=== PATIENT | male | born 1965 | race African-American/Black ===

== ENCOUNTER 2017-10-21 01:35 | Inpatient (IN) | payer MEDICAID ==
[~2017-10-21] VITALS: Ht 175.3 cm; Wt 44.2 kg
[2017-10-21] VITALS (9 sets, daily range): BP systolic 125–155; BP diastolic 77–99
[2017-10-21] MEDS ORDERED: IPRATROPIUM BROMIDE (0.02%) 0.5MG/2.5ML NEB HHN STA (01:42)
[2017-10-21] MEDS ORDERED: ALBUTEROL (0.083%) 2.5MG/3ML NEB HHN STA (01:42)
[2017-10-21 02:22] LABS: BASOPHILS % 0.2 % (0.0-2.0); EOSINOPHILS % 1.3 % (0.0-5.0); HEMATOCRIT. 28.6 % (42.0-52.0); HEMOGLOBIN. 9.4 g/dL (14.0-18.0); LYMPHOCYTES % 12.6 % (20.0-50.0); MEAN CORPUSCULAR HEMOGLOBIN 28.3 pg (28.0-32.0); MEAN PLATELET VOLUME 7.3 fl (7.4-10.4); MONOCYTES % 9.5 % (2.0-8.0); NEUTROPHILS % 76.4 % (40.0-76.0); PLATELET 190 x1000/uL (130-400); RED BLOOD CELL COUNT 3.32 mill/uL (4.7-6.1); RED CELL DISTRIBUTION WIDTH 14.1 % (11.6-14.6)
[2017-10-21 02:30] LABS: INR 1.1; PROTHROMBIN TIME 11.5 sec (9.4-11.6)
[2017-10-21 02:41] LABS: CHLORIDE 98 mEq/L (98-107); TROPONIN I < 0.02 ng/mL (0.00-0.04)
[2017-10-21] MEDS ORDERED: SODIUM CHLORIDE 0.9% 1,000 ML IV SCH (03:46)
[2017-10-21] MEDS ORDERED: IOHEXOL-350 100 ML BOTTLE ONE (05:02)
[2017-10-21] MEDS ORDERED: CLON0.2T PO (05:11)
[2017-10-21] MEDS ORDERED: GABA-290 (05:17)
[2017-10-21] MEDS ORDERED: LEVO500T89 (05:17)
[2017-10-21] MEDS ORDERED: DOCU-150 (05:17)
[2017-10-21] MEDS ORDERED: METO-411 (05:17)
[2017-10-21] MEDS ORDERED: ATOR20TA65 (05:17)
[2017-10-21] MEDS ORDERED: TAMS0.4C31 (05:17)
[2017-10-21] MEDS ORDERED: IPRATROPIUM/ALBUTEROL 0.5-3(2.5)MG/3ML NEB HHN PRN (07:15)
[2017-10-21] MEDS: IPRATROPIUM/ALBUTEROL 0.5-3(2.5)MG/3ML NEB HHN SCH ×4 (09:35→20:18)
[2017-10-21] MEDS ORDERED: ALBU18HF2 IH (09:38)
[2017-10-21] MEDS ORDERED: IBUP-2271 PO (09:38)
[2017-10-21] MEDS ORDERED: AMLO10TA80 PO (09:38)
[2017-10-21] MEDS ORDERED: METR500T4 PO (09:38)
[2017-10-21] MEDS ORDERED: ATOR20TA65 PO (09:38)
[2017-10-21] MEDS ORDERED: MORP30TA66 PO (09:38)
[2017-10-21 11:10] LABS: BG BASE EXCESS 3.7 mmol/L (-2.0-2.0); BG CARBOXYHEMOGLOBIN 0.3 % (0.5-1.5); BG DEOXYHEMOGLOBIN 7.8 % (0.0-5.0); BG FRACTION INSPIRED OXYGEN 21; BG HCO3 ACT 26.9 mmol/L (22.0-26.0); BG METHEMOGLOBIN 0.6 % (0.0-1.5); BG OXYGEN SATURATION 92.1 % (92.0-98.5); BG OXYHEMOGLOBIN 91.3 % (94.0-97.0); BG PH 7.503 (7.350-7.450); BG SAMPLE SITE RIGHT BRACHIAL; BG TOTAL HEMOGLOBIN 9.4 g/dL (12.0-18.0); BG VENT MODE ROOM AIR
[2017-10-21] MEDS ORDERED: SODIUM BICARBONATE 4% (2.4MEQ) 5ML VIAL IV ONE (14:27)
[2017-10-21] MEDS ORDERED: ALBUTEROL 6.7GM HFA INHALER INH SCH (15:45)
[2017-10-21] MEDS: CLONIDINE 0.2MG TABLET PO SCH (15:57)
[2017-10-21] MEDS: MORPHINE SULFATE 4 MG/ML CPJ (NOT FOR IM USE) IV PRN (15:58)
[2017-10-21] MEDS: ENOXAPARIN 40MG/0.4ML SYR SUBCUT SCH (17:25)
[2017-10-21] MEDS: GABAPENTIN 300MG CAPSULE PO SCH (17:25)
[2017-10-21] MEDS: LEVOFLOXACIN 500MG TABLET PO SCH (17:25)
[2017-10-21 19:49] LABS: CLARITY URINE TURBID (CLEAR); COLOR URINE YELLOW (YELLOW); KETONES URINE NEGATIVE (NEGATIVE); LEUKOCYTE ESTERASE URINE TRACE (NEGATIVE); NITRITE URINE NEGATIVE (NEGATIVE); OCCULT BLOOD URINE TRACE (NEGATIVE); PROTEIN URINE 2+ (NEGATIVE); SPECIFIC GRAVITY URINE 1.046 (1.005-1.030); UROBILINOGEN URINE 0.2 E.U./dL (0.2-1.0)
[2017-10-21 20:05] LABS: *AMPHETAMINES SCREEN URINE NEGATIVE (NEGATIVE); *BARBITURATES SCREEN URINE NEGATIVE (NEGATIVE); *BENZODIAZEPINES SCREEN URINE NEGATIVE (NEGATIVE); *COCAINE SCREEN URINE NEGATIVE (NEGATIVE); CANNABINOID URINE SCREEN NEGATIVE (NEGATIVE); METHADONE URINE SCREEN NEGATIVE (NEGATIVE); OPIATES URINE SCREEN PRESUMTIVE POSITIVE (NEGATIVE); PHENCYCLIDINE URINE SCREEN NEGATIVE (NEGATIVE)
[2017-10-21] MEDS: METOPROLOL TARTRATE 100MG TABLET PO SCH (20:48)
[2017-10-21] MEDS: ATORVASTATIN CALCIUM 20MG TABLET PO SCH (20:48)
[2017-10-21] MEDS: METRONIDAZOLE 500MG TABLET PO SCH (21:10)
[2017-10-22] VITALS (12 sets, daily range): BP systolic 110–155; BP diastolic 65–104
[2017-10-22] MEDS: IPRATROPIUM/ALBUTEROL 0.5-3(2.5)MG/3ML NEB HHN SCH ×6 (00:33→20:00)
[2017-10-22] MEDS: IBUPROFEN 200MG TABLET PO PRN ×2 (03:16→23:32)
[2017-10-22] MEDS: METRONIDAZOLE 500MG TABLET PO SCH ×3 (05:44→21:06)
[2017-10-22 07:08] LABS: BASOPHILS % 0.3 % (0.0-2.0); EOSINOPHILS % 1.2 % (0.0-5.0); HEMATOCRIT. 24.9 % (42.0-52.0); HEMOGLOBIN. 8.4 g/dL (14.0-18.0); LYMPHOCYTES % 8.8 % (20.0-50.0); MEAN CORPUSCULAR HEMOGLOBIN 28.7 pg (28.0-32.0); MEAN CORPUSCULAR VOLUME 85.1 fL (80.0-94.0); MEAN PLATELET VOLUME 7.6 fl (7.4-10.4); MONOCYTES % 11.5 % (2.0-8.0); NEUTROPHILS % 78.2 % (40.0-76.0); PLATELET 168 x1000/uL (130-400); RED BLOOD CELL COUNT 2.92 mill/uL (4.7-6.1); RED CELL DISTRIBUTION WIDTH 14.4 % (11.6-14.6)
[2017-10-22 07:44] LABS: CHLORIDE 102 mEq/L (98-107)
[2017-10-22] MEDS: CLONIDINE 0.2MG TABLET PO SCH (08:30)
[2017-10-22] MEDS: TAMSULOSIN HCL 0.4MG SR CAPSULE PO SCH (08:30)
[2017-10-22] MEDS: GABAPENTIN 300MG CAPSULE PO SCH ×2 (08:30→17:18)
[2017-10-22] MEDS: AMLODIPINE 10MG TABLET PO SCH (08:30)
[2017-10-22] MEDS: DOCUSATE SODIUM 100MG CAPSULE PO SCH (08:30)
[2017-10-22] MEDS: METOPROLOL TARTRATE 100MG TABLET PO SCH ×2 (08:31→21:07)
[2017-10-22] MEDS: MORPHINE SULFATE 4 MG/ML CPJ (NOT FOR IM USE) IV PRN ×2 (09:23→21:08)
[2017-10-22] MEDS: LEVOFLOXACIN 500MG TABLET PO SCH (10:56)
[2017-10-22] MEDS: ENOXAPARIN 40MG/0.4ML SYR SUBCUT SCH (17:19)
[2017-10-22] MEDS: ATORVASTATIN CALCIUM 20MG TABLET PO SCH (21:06)
[2017-10-22] MEDS: ONDANSETRON HCL 4MG/2ML VIAL IV PRN (23:54)
[2017-10-23] VITALS (12 sets, daily range): BP systolic 118–158; BP diastolic 70–101
[2017-10-23] MEDS: IPRATROPIUM/ALBUTEROL 0.5-3(2.5)MG/3ML NEB HHN SCH ×6 (04:00→20:00)
[2017-10-23] MEDS: METRONIDAZOLE 500MG TABLET PO SCH ×3 (05:04→21:00)
[2017-10-23] MEDS: ONDANSETRON HCL 4MG/2ML VIAL IV PRN (06:16)
[2017-10-23] MEDS: MORPHINE SULFATE 4 MG/ML CPJ (NOT FOR IM USE) IV PRN ×4 (06:18→21:09)
[2017-10-23 06:40] LABS: BASOPHILS % 0.4 % (0.0-2.0); EOSINOPHILS % 1.1 % (0.0-5.0); HEMATOCRIT. 24.8 % (42.0-52.0); HEMOGLOBIN. 8.4 g/dL (14.0-18.0); LYMPHOCYTES % 8.8 % (20.0-50.0); MEAN CORPUSCULAR HEMOGLOBIN 28.7 pg (28.0-32.0); MEAN CORPUSCULAR VOLUME 85.2 fL (80.0-94.0); MEAN PLATELET VOLUME 7.5 fl (7.4-10.4); MONOCYTES % 11.1 % (2.0-8.0); NEUTROPHILS % 78.6 % (40.0-76.0); PLATELET 192 x1000/uL (130-400); RED BLOOD CELL COUNT 2.92 mill/uL (4.7-6.1); RED CELL DISTRIBUTION WIDTH 14.5 % (11.6-14.6)
[2017-10-23] MEDS: METOPROLOL TARTRATE 100MG TABLET PO SCH ×2 (08:34→20:54)
[2017-10-23] MEDS: CLONIDINE 0.2MG TABLET PO SCH (08:35)
[2017-10-23] MEDS: DOCUSATE SODIUM 100MG CAPSULE PO SCH (08:35)
[2017-10-23] MEDS: GABAPENTIN 300MG CAPSULE PO SCH ×2 (08:35→16:01)
[2017-10-23] MEDS: AMLODIPINE 10MG TABLET PO SCH (08:35)
[2017-10-23] MEDS: TAMSULOSIN HCL 0.4MG SR CAPSULE PO SCH (08:35)
[2017-10-23 09:23] LABS: CHLORIDE 103 mEq/L (98-107)
[2017-10-23] MEDS ORDERED: MORPHINE SULFATE 4 MG/ML CPJ (NOT FOR IM USE) IV PRN (11:00)
[2017-10-23] MEDS: LEVOFLOXACIN 500MG TABLET PO SCH (11:17)
[2017-10-23] MEDS: ENOXAPARIN 40MG/0.4ML SYR SUBCUT SCH (16:02)
[2017-10-23] MEDS: ATORVASTATIN CALCIUM 20MG TABLET PO SCH (20:53)
[2017-10-24] VITALS (12 sets, daily range): BP systolic 119–154; BP diastolic 65–92
[2017-10-24] MEDS: IPRATROPIUM/ALBUTEROL 0.5-3(2.5)MG/3ML NEB HHN SCH ×5 (00:05→20:20)
[2017-10-24] MEDS: MORPHINE SULFATE 4 MG/ML CPJ (NOT FOR IM USE) IV PRN ×5 (03:21→21:08)
[2017-10-24] MEDS: METRONIDAZOLE 500MG TABLET PO SCH ×3 (05:57→21:02)
[2017-10-24 06:33] LABS: BASOPHILS % 0.3 % (0.0-2.0); EOSINOPHILS % 1.3 % (0.0-5.0); HEMATOCRIT. 25.5 % (42.0-52.0); HEMOGLOBIN. 8.5 g/dL (14.0-18.0); LYMPHOCYTES % 8.1 % (20.0-50.0); MEAN CORPUSCULAR HEMOGLOBIN 28.6 pg (28.0-32.0); MEAN CORPUSCULAR VOLUME 85.5 fL (80.0-94.0); MEAN PLATELET VOLUME 7.5 fl (7.4-10.4); MONOCYTES % 9.7 % (2.0-8.0); NEUTROPHILS % 80.6 % (40.0-76.0); PLATELET 212 x1000/uL (130-400); RED BLOOD CELL COUNT 2.98 mill/uL (4.7-6.1); RED CELL DISTRIBUTION WIDTH 14.7 % (11.6-14.6)
[2017-10-24 06:50] LABS: CHLORIDE 103 mEq/L (98-107)
[2017-10-24] MEDS: GABAPENTIN 300MG CAPSULE PO SCH ×2 (08:34→17:05)
[2017-10-24] MEDS: ZINC SULFATE 220 MG ( 50 ) CAPSULE PO SCH (08:34)
[2017-10-24] MEDS: AMLODIPINE 10MG TABLET PO SCH (08:34)
[2017-10-24] MEDS: TAMSULOSIN HCL 0.4MG SR CAPSULE PO SCH (08:35)
[2017-10-24] MEDS: CLONIDINE 0.2MG TABLET PO SCH (08:35)
[2017-10-24] MEDS: ASCORBIC ACID 250 MG TABLET PO SCH (08:35)
[2017-10-24] MEDS: MULTIVITAMINS,THER W-MINERALS TABLET PO SCH (08:36)
[2017-10-24] MEDS: DOCUSATE SODIUM 100MG CAPSULE PO SCH (08:36)
[2017-10-24] MEDS: METOPROLOL TARTRATE 100MG TABLET PO SCH ×2 (08:36→21:01)
[2017-10-24] MEDS: LEVOFLOXACIN 500MG TABLET PO SCH (10:29)
[2017-10-24] MEDS: ENOXAPARIN 40MG/0.4ML SYR SUBCUT SCH (17:05)
[2017-10-24] MEDS: ATORVASTATIN CALCIUM 20MG TABLET PO SCH (21:01)
[2017-10-25] VITALS (12 sets, daily range): BP systolic 122–148; BP diastolic 70–93
[2017-10-25] MEDS: MORPHINE SULFATE 4 MG/ML CPJ (NOT FOR IM USE) IV PRN ×7 (02:22→21:30)
[2017-10-25] MEDS: METRONIDAZOLE 500MG TABLET PO SCH ×3 (06:03→21:34)
[2017-10-25] MEDS: IPRATROPIUM/ALBUTEROL 0.5-3(2.5)MG/3ML NEB HHN SCH ×5 (08:00→23:42)
[2017-10-25] MEDS: DOCUSATE SODIUM 100MG CAPSULE PO SCH ×3 (09:00→17:54)
[2017-10-25] MEDS: CLONIDINE 0.2MG TABLET PO SCH (09:00)
[2017-10-25] MEDS: ASCORBIC ACID 250 MG TABLET PO SCH (09:12)
[2017-10-25] MEDS: ZINC SULFATE 220 MG ( 50 ) CAPSULE PO SCH (09:12)
[2017-10-25] MEDS: AMLODIPINE 10MG TABLET PO SCH (09:13)
[2017-10-25] MEDS: METOPROLOL TARTRATE 100MG TABLET PO SCH ×2 (09:13→20:36)
[2017-10-25] MEDS: TAMSULOSIN HCL 0.4MG SR CAPSULE PO SCH (09:13)
[2017-10-25] MEDS: MULTIVITAMINS,THER W-MINERALS TABLET PO SCH (09:14)
[2017-10-25] MEDS: GABAPENTIN 300MG CAPSULE PO SCH ×2 (09:14→17:54)
[2017-10-25] MEDS: LEVOFLOXACIN 500MG TABLET PO SCH (11:38)
[2017-10-25] MEDS: ENOXAPARIN 40MG/0.4ML SYR SUBCUT SCH (17:54)
[2017-10-25] MEDS: ATORVASTATIN CALCIUM 20MG TABLET PO SCH (20:36)
[2017-10-26] VITALS (12 sets, daily range): BP systolic 101–137; BP diastolic 65–90
[2017-10-26] MEDS: MORPHINE SULFATE 4 MG/ML CPJ (NOT FOR IM USE) IV PRN ×5 (02:45→20:01)
[2017-10-26] MEDS: IPRATROPIUM/ALBUTEROL 0.5-3(2.5)MG/3ML NEB HHN SCH ×5 (04:00→21:30)
[2017-10-26] MEDS: METRONIDAZOLE 500MG TABLET PO SCH ×3 (06:05→22:00)
[2017-10-26 06:42] LABS: BASOPHILS % 0.4 % (0.0-2.0); EOSINOPHILS % 1.3 % (0.0-5.0); HEMATOCRIT. 26.8 % (42.0-52.0); HEMOGLOBIN. 8.7 g/dL (14.0-18.0); LYMPHOCYTES % 8.3 % (20.0-50.0); MEAN CORPUSCULAR HEMOGLOBIN 27.8 pg (28.0-32.0); MEAN PLATELET VOLUME 7.2 fl (7.4-10.4); PLATELET 230 x1000/uL (130-400); RED BLOOD CELL COUNT 3.11 mill/uL (4.7-6.1); RED CELL DISTRIBUTION WIDTH 14.7 % (11.6-14.6)
[2017-10-26 06:56] LABS: CHLORIDE 104 mEq/L (98-107)
[2017-10-26] MEDS: ASCORBIC ACID 250 MG TABLET PO SCH (08:18)
[2017-10-26] MEDS: GABAPENTIN 300MG CAPSULE PO SCH ×2 (08:18→17:44)
[2017-10-26] MEDS: MULTIVITAMINS,THER W-MINERALS TABLET PO SCH (08:18)
[2017-10-26] MEDS: DOCUSATE SODIUM 100MG CAPSULE PO SCH ×3 (08:18→17:44)
[2017-10-26] MEDS: ZINC SULFATE 220 MG ( 50 ) CAPSULE PO SCH (08:18)
[2017-10-26] MEDS: TAMSULOSIN HCL 0.4MG SR CAPSULE PO SCH (08:23)
[2017-10-26] MEDS: METOPROLOL TARTRATE 100MG TABLET PO SCH ×2 (08:23→21:37)
[2017-10-26] MEDS: AMLODIPINE 10MG TABLET PO SCH (08:23)
[2017-10-26] MEDS: LEVOFLOXACIN 500MG TABLET PO SCH (13:02)
[2017-10-26] MEDS: CLONIDINE 0.2MG TABLET PO SCH (13:04)
[2017-10-26] MEDS: FLUCONAZOLE 200MG TABLET PO SCH (17:43)
[2017-10-26] MEDS: ENOXAPARIN 40MG/0.4ML SYR SUBCUT SCH (17:44)
[2017-10-26] MEDS: ATORVASTATIN CALCIUM 20MG TABLET PO SCH (21:36)
[2017-10-27] VITALS (13 sets, daily range): BP systolic 108–128; BP diastolic 62–84
[2017-10-27] MEDS: MORPHINE SULFATE 4 MG/ML CPJ (NOT FOR IM USE) IV PRN ×6 (00:11→20:32)
[2017-10-27] MEDS: IPRATROPIUM/ALBUTEROL 0.5-3(2.5)MG/3ML NEB HHN SCH ×6 (01:32→23:59)
[2017-10-27] MEDS: METRONIDAZOLE 500MG TABLET PO SCH ×3 (05:36→20:30)
[2017-10-27 07:43] LABS: BASOPHILS % 0.2 % (0.0-2.0); EOSINOPHILS % 1.5 % (0.0-5.0); HEMATOCRIT. 24.3 % (42.0-52.0); HEMOGLOBIN. 8.1 g/dL (14.0-18.0); LYMPHOCYTES % 10.2 % (20.0-50.0); MEAN CORPUSCULAR HEMOGLOBIN 28.4 pg (28.0-32.0); MEAN CORPUSCULAR VOLUME 84.5 fL (80.0-94.0); MONOCYTES % 13.3 % (2.0-8.0); NEUTROPHILS % 74.8 % (40.0-76.0); PLATELET 205 x1000/uL (130-400); RED BLOOD CELL COUNT 2.87 mill/uL (4.7-6.1)
[2017-10-27 08:10] LABS: CHLORIDE 103 mEq/L (98-107)
[2017-10-27] MEDS: DOCUSATE SODIUM 100MG CAPSULE PO SCH ×3 (09:00→17:13)
[2017-10-27] MEDS: ZINC SULFATE 220 MG ( 50 ) CAPSULE PO SCH (09:10)
[2017-10-27] MEDS: FLUCONAZOLE 200MG TABLET PO SCH (09:11)
[2017-10-27] MEDS: TAMSULOSIN HCL 0.4MG SR CAPSULE PO SCH (09:11)
[2017-10-27] MEDS: ASCORBIC ACID 250 MG TABLET PO SCH (09:11)
[2017-10-27] MEDS: MULTIVITAMINS,THER W-MINERALS TABLET PO SCH (09:11)
[2017-10-27] MEDS: GABAPENTIN 300MG CAPSULE PO SCH ×2 (09:11→17:13)
[2017-10-27] MEDS: CLONIDINE 0.2MG TABLET PO SCH (09:12)
[2017-10-27] MEDS: METOPROLOL TARTRATE 100MG TABLET PO SCH ×2 (09:12→20:30)
[2017-10-27] MEDS: AMLODIPINE 10MG TABLET PO SCH (09:12)
[2017-10-27] MEDS: LEVOFLOXACIN 500MG TABLET PO SCH (11:19)
[2017-10-27] MEDS: LORAZEPAM 0.5MG TABLET PO PRN ×2 (12:05→20:30)
[2017-10-27] MEDS: ENOXAPARIN 40MG/0.4ML SYR SUBCUT SCH (17:13)
[2017-10-27] MEDS: ATORVASTATIN CALCIUM 20MG TABLET PO SCH (20:30)
[2017-10-28] VITALS (19 sets, daily range): BP systolic 103–149; BP diastolic 57–90
[2017-10-28] MEDS: MORPHINE SULFATE 4 MG/ML CPJ (NOT FOR IM USE) IV PRN ×7 (00:17→23:11)
[2017-10-28] MEDS: IPRATROPIUM/ALBUTEROL 0.5-3(2.5)MG/3ML NEB HHN SCH ×5 (04:48→20:46)
[2017-10-28] MEDS: METRONIDAZOLE 500MG TABLET PO SCH ×3 (05:05→21:42)
[2017-10-28] MEDS: GABAPENTIN 300MG CAPSULE PO SCH ×2 (09:06→18:14)
[2017-10-28] MEDS: ZINC SULFATE 220 MG ( 50 ) CAPSULE PO SCH (09:06)
[2017-10-28] MEDS: TAMSULOSIN HCL 0.4MG SR CAPSULE PO SCH (09:07)
[2017-10-28] MEDS: MULTIVITAMINS,THER W-MINERALS TABLET PO SCH (09:07)
[2017-10-28] MEDS: DOCUSATE SODIUM 100MG CAPSULE PO SCH ×2 (09:08→18:14)
[2017-10-28] MEDS: AMLODIPINE 10MG TABLET PO SCH (09:08)
[2017-10-28] MEDS: ASCORBIC ACID 250 MG TABLET PO SCH (09:08)
[2017-10-28] MEDS: METOPROLOL TARTRATE 100MG TABLET PO SCH ×2 (09:08→20:03)
[2017-10-28] MEDS: FLUCONAZOLE 200MG TABLET PO SCH (09:16)
[2017-10-28] MEDS: CLONIDINE 0.2MG TABLET PO SCH (09:20)
[2017-10-28] MEDS: LEVOFLOXACIN 500MG TABLET PO SCH (11:37)
[2017-10-28] MEDS: ENOXAPARIN 40MG/0.4ML SYR SUBCUT SCH (15:47)
[2017-10-28] MEDS: ATORVASTATIN CALCIUM 20MG TABLET PO SCH (20:03)
[2017-10-28] MEDS ORDERED: MIRTAZAPINE 15MG TABLET PO SCH (21:00)
[2017-10-29] VITALS (12 sets, daily range): BP systolic 111–155; BP diastolic 43–97
[2017-10-29] MEDS: IPRATROPIUM/ALBUTEROL 0.5-3(2.5)MG/3ML NEB HHN SCH ×8 (00:16→23:48)
[2017-10-29] MEDS: MORPHINE SULFATE 4 MG/ML CPJ (NOT FOR IM USE) IV PRN ×3 (02:37→14:58)
[2017-10-29 07:55] LABS: HEMATOCRIT. 26.3 % (42.0-52.0); HEMOGLOBIN. 8.7 g/dL (14.0-18.0); MEAN CORPUSCULAR HEMOGLOBIN 28.4 pg (28.0-32.0); MEAN CORPUSCULAR VOLUME 85.6 fL (80.0-94.0); PLATELET 199 x1000/uL (130-400); RED BLOOD CELL COUNT 3.07 mill/uL (4.7-6.1); RED CELL DISTRIBUTION WIDTH 15.1 % (11.6-14.6)
[2017-10-29 08:20] LABS: CHLORIDE 104 mEq/L (98-107)
[2017-10-29] MEDS: MULTIVITAMINS,THER W-MINERALS TABLET PO SCH ×2 (09:00→09:17)
[2017-10-29] MEDS: ASCORBIC ACID 250 MG TABLET PO SCH (09:11)
[2017-10-29] MEDS: DOCUSATE SODIUM 100MG CAPSULE PO SCH ×2 (09:11→16:45)
[2017-10-29] MEDS: GABAPENTIN 300MG CAPSULE PO SCH ×2 (09:11→16:45)
[2017-10-29] MEDS: ZINC SULFATE 220 MG ( 50 ) CAPSULE PO SCH (09:11)
[2017-10-29] MEDS: FLUCONAZOLE 200MG TABLET PO SCH (09:12)
[2017-10-29] MEDS: TAMSULOSIN HCL 0.4MG SR CAPSULE PO SCH (09:12)
[2017-10-29] MEDS: AMLODIPINE 10MG TABLET PO SCH (09:13)
[2017-10-29] MEDS: METOPROLOL TARTRATE 100MG TABLET PO SCH ×2 (09:13→21:00)
[2017-10-29] MEDS: CLONIDINE 0.2MG TABLET PO SCH (09:13)
[2017-10-29 10:01] LABS: PLATELET ESTIMATE NORMAL
[2017-10-29] MEDS ORDERED: LORAZEPAM 2MG/ML CPJ IV PRN (11:30)
[2017-10-29] MEDS: ENOXAPARIN 40MG/0.4ML SYR SUBCUT SCH (16:45)
[2017-10-29] MEDS: ATORVASTATIN CALCIUM 20MG TABLET PO SCH (21:00)
[2017-10-30] VITALS (12 sets, daily range): BP systolic 122–151; BP diastolic 66–89
[2017-10-30] MEDS: MORPHINE SULFATE 4 MG/ML CPJ (NOT FOR IM USE) IV PRN ×6 (03:08→21:42)
[2017-10-30] MEDS: IPRATROPIUM/ALBUTEROL 0.5-3(2.5)MG/3ML NEB HHN SCH ×4 (03:58→16:32)
[2017-10-30] MEDS: DOCUSATE SODIUM 100MG CAPSULE PO SCH ×2 (09:00→17:00)
[2017-10-30] MEDS: TAMSULOSIN HCL 0.4MG SR CAPSULE PO SCH (09:00)
[2017-10-30] MEDS: GABAPENTIN 300MG CAPSULE PO SCH ×2 (09:00→17:00)
[2017-10-30] MEDS: METOPROLOL TARTRATE 100MG TABLET PO SCH ×2 (09:06→21:00)
[2017-10-30] MEDS: AMLODIPINE 10MG TABLET PO SCH (09:06)
[2017-10-30] MEDS: ZINC SULFATE 220 MG ( 50 ) CAPSULE PO SCH (09:07)
[2017-10-30] MEDS: ASCORBIC ACID 250 MG TABLET PO SCH (09:07)
[2017-10-30] MEDS: FLUCONAZOLE 200MG TABLET PO SCH (09:08)
[2017-10-30] MEDS: CLONIDINE 0.2MG TABLET PO SCH (09:08)
[2017-10-30] MEDS: BUDESONIDE 0.5MG/2ML NEB HHN SCH ×2 (12:09→20:16)
[2017-10-30] MEDS: ENOXAPARIN 40MG/0.4ML SYR SUBCUT SCH (16:30)
[2017-10-30] MEDS: ATORVASTATIN CALCIUM 20MG TABLET PO SCH (21:00)
[2017-10-31] VITALS (12 sets, daily range): BP systolic 115–158; BP diastolic 71–98
[2017-10-31] MEDS: MORPHINE SULFATE 4 MG/ML CPJ (NOT FOR IM USE) IV PRN ×6 (02:14→21:21)
[2017-10-31] MEDS: IPRATROPIUM/ALBUTEROL 0.5-3(2.5)MG/3ML NEB HHN SCH ×5 (04:00→23:44)
[2017-10-31] MEDS: BUDESONIDE 0.5MG/2ML NEB HHN SCH ×2 (08:49→20:20)
[2017-10-31] MEDS: DOCUSATE SODIUM 100MG CAPSULE PO SCH ×2 (08:59→16:30)
[2017-10-31] MEDS: GABAPENTIN 300MG CAPSULE PO SCH ×2 (08:59→16:30)
[2017-10-31] MEDS: TAMSULOSIN HCL 0.4MG SR CAPSULE PO SCH (08:59)
[2017-10-31] MEDS: AMLODIPINE 10MG TABLET PO SCH (08:59)
[2017-10-31] MEDS: METOPROLOL TARTRATE 100MG TABLET PO SCH (08:59)
[2017-10-31] MEDS: CLONIDINE 0.2MG TABLET PO SCH (08:59)
[2017-10-31] MEDS: FLUCONAZOLE 200MG TABLET PO SCH (08:59)
[2017-10-31] MEDS: MULTIVITAMINS,THER W-MINERALS TABLET PO SCH (09:00)
[2017-10-31] MEDS: ASCORBIC ACID 250 MG TABLET PO SCH (09:00)
[2017-10-31] MEDS: ZINC SULFATE 220 MG ( 50 ) CAPSULE PO SCH (09:00)
[2017-10-31] MEDS: ENOXAPARIN 40MG/0.4ML SYR SUBCUT SCH (16:30)
[2017-10-31] MEDS: ATORVASTATIN CALCIUM 20MG TABLET PO SCH (21:00)
[2017-11-01] VITALS (12 sets, daily range): BP systolic 124–170; BP diastolic 73–96
[2017-11-01] MEDS: MORPHINE SULFATE 4 MG/ML CPJ (NOT FOR IM USE) IV PRN ×8 (00:26→21:48)
[2017-11-01] MEDS: METOPROLOL TARTRATE 100MG TABLET PO SCH ×3 (00:28→20:33)
[2017-11-01] MEDS: IPRATROPIUM/ALBUTEROL 0.5-3(2.5)MG/3ML NEB HHN SCH ×5 (03:19→20:00)
[2017-11-01] MEDS: DOCUSATE SODIUM 100MG CAPSULE PO SCH ×2 (09:00→17:00)
[2017-11-01] MEDS: AMLODIPINE 10MG TABLET PO SCH (09:00)
[2017-11-01] MEDS: ZINC SULFATE 220 MG ( 50 ) CAPSULE PO SCH (09:00)
[2017-11-01] MEDS: GABAPENTIN 300MG CAPSULE PO SCH ×2 (09:00→17:00)
[2017-11-01] MEDS: MULTIVITAMINS,THER W-MINERALS TABLET PO SCH (09:00)
[2017-11-01] MEDS: FLUCONAZOLE 200MG TABLET PO SCH (09:00)
[2017-11-01] MEDS: TAMSULOSIN HCL 0.4MG SR CAPSULE PO SCH (09:00)
[2017-11-01] MEDS: CLONIDINE 0.2MG TABLET PO SCH (09:00)
[2017-11-01] MEDS: ASCORBIC ACID 250 MG TABLET PO SCH (09:00)
[2017-11-01] MEDS: BUDESONIDE 0.5MG/2ML NEB HHN SCH ×2 (09:35→20:10)
[2017-11-01] MEDS: ENOXAPARIN 40MG/0.4ML SYR SUBCUT SCH (16:30)
[2017-11-01] MEDS: DIPHENHYDRAMINE 50MG CAPSULE PO PRN (20:33)
[2017-11-01] MEDS: ATORVASTATIN CALCIUM 20MG TABLET PO SCH (20:34)
[2017-11-02] VITALS (14 sets, daily range): BP systolic 128–184; BP diastolic 81–99
[2017-11-02] MEDS: MORPHINE SULFATE 4 MG/ML CPJ (NOT FOR IM USE) IV PRN ×8 (00:42→23:15)
[2017-11-02] MEDS: IPRATROPIUM/ALBUTEROL 0.5-3(2.5)MG/3ML NEB HHN SCH ×5 (03:30→21:27)
[2017-11-02] MEDS: DIPHENHYDRAMINE 50MG CAPSULE PO PRN (08:03)
[2017-11-02] MEDS: AMLODIPINE 10MG TABLET PO SCH (09:00)
[2017-11-02] MEDS: METOPROLOL TARTRATE 100MG TABLET PO SCH ×2 (09:00→21:00)
[2017-11-02] MEDS: FLUCONAZOLE 200MG TABLET PO SCH (09:00)
[2017-11-02] MEDS: CLONIDINE 0.2MG TABLET PO SCH (09:00)
[2017-11-02] MEDS: ASCORBIC ACID 250 MG TABLET PO SCH (09:00)
[2017-11-02] MEDS: DOCUSATE SODIUM 100MG CAPSULE PO SCH ×2 (09:00→16:53)
[2017-11-02] MEDS: GABAPENTIN 300MG CAPSULE PO SCH ×2 (09:00→16:53)
[2017-11-02] MEDS: MULTIVITAMINS,THER W-MINERALS TABLET PO SCH (09:00)
[2017-11-02] MEDS: TAMSULOSIN HCL 0.4MG SR CAPSULE PO SCH (09:00)
[2017-11-02] MEDS: ZINC SULFATE 220 MG ( 50 ) CAPSULE PO SCH (09:00)
[2017-11-02] MEDS: BUDESONIDE 0.5MG/2ML NEB HHN SCH (10:00)
[2017-11-02] MEDS: ENOXAPARIN 40MG/0.4ML SYR SUBCUT SCH (16:30)
[2017-11-02] MEDS: ATORVASTATIN CALCIUM 20MG TABLET PO SCH (21:00)
[2017-11-02] MEDS: DIPHENHYDRAMINE 50MG/ML VIAL IV PRN (23:15)
[2017-11-03] VITALS (23 sets, daily range): BP systolic 112–173; BP diastolic 51–108
[2017-11-03] MEDS: MORPHINE SULFATE 4 MG/ML CPJ (NOT FOR IM USE) IV PRN ×8 (02:36→22:02)
[2017-11-03] MEDS: IPRATROPIUM/ALBUTEROL 0.5-3(2.5)MG/3ML NEB HHN SCH ×2 (04:00)
[2017-11-03] MEDS: CLONIDINE 0.2MG TABLET PO SCH (09:00)
[2017-11-03] MEDS: ZINC SULFATE 220 MG ( 50 ) CAPSULE PO SCH (09:00)
[2017-11-03] MEDS: MULTIVITAMINS,THER W-MINERALS TABLET PO SCH (09:00)
[2017-11-03] MEDS: DOCUSATE SODIUM 100MG CAPSULE PO SCH ×2 (09:00→17:00)
[2017-11-03] MEDS: METOPROLOL TARTRATE 100MG TABLET PO SCH ×2 (09:00→21:00)
[2017-11-03] MEDS: ASCORBIC ACID 250 MG TABLET PO SCH (09:00)
[2017-11-03] MEDS: TAMSULOSIN HCL 0.4MG SR CAPSULE PO SCH (09:00)
[2017-11-03] MEDS: GABAPENTIN 300MG CAPSULE PO SCH ×2 (09:00→17:00)
[2017-11-03] MEDS: AMLODIPINE 10MG TABLET PO SCH (09:00)
[2017-11-03] MEDS: DIPHENHYDRAMINE 50MG/ML VIAL IV PRN ×2 (10:48→23:09)
[2017-11-03] MEDS: ENOXAPARIN 40MG/0.4ML SYR SUBCUT SCH (16:30)
[2017-11-03] MEDS: ATORVASTATIN CALCIUM 20MG TABLET PO SCH (21:00)
[2017-11-04] VITALS (15 sets, daily range): BP systolic 114–172; BP diastolic 57–96
[2017-11-04] MEDS: MORPHINE SULFATE 4 MG/ML CPJ (NOT FOR IM USE) IV PRN ×4 (01:05→11:01)
[2017-11-04] MEDS: METOPROLOL TARTRATE 100MG TABLET PO SCH (09:00)
[2017-11-04] MEDS: ASCORBIC ACID 250 MG TABLET PO SCH (09:00)
[2017-11-04] MEDS: ZINC SULFATE 220 MG ( 50 ) CAPSULE PO SCH (09:00)
[2017-11-04] MEDS: CLONIDINE 0.2MG TABLET PO SCH (09:00)
[2017-11-04] MEDS: DOCUSATE SODIUM 100MG CAPSULE PO SCH (09:00)
[2017-11-04] MEDS: TAMSULOSIN HCL 0.4MG SR CAPSULE PO SCH (09:00)
[2017-11-04] MEDS: MULTIVITAMINS,THER W-MINERALS TABLET PO SCH (09:00)
[2017-11-04] MEDS: AMLODIPINE 10MG TABLET PO SCH (09:00)
[2017-11-04] MEDS: GABAPENTIN 300MG CAPSULE PO SCH (09:00)
[2017-11-04] MEDS: DIPHENHYDRAMINE 50MG/ML VIAL IV PRN ×2 (12:46→21:20)
[2017-11-04] MEDS ORDERED: LIDOCAINE HCL 1% 20ML VIAL (Pyxis) INJ ONE (14:46)
[2017-11-04] MEDS: MORPHINE SULFATE 250 MG in DEXT 5% WATER 240 ML IV PRN ×2 (15:56→17:36)
[2017-11-05] VITALS (9 sets, daily range): BP systolic 85–149; BP diastolic 47–93
[2017-11-05] MEDS: DIPHENHYDRAMINE 50MG/ML VIAL IV PRN (10:20)
[2017-11-06] VITALS: BP 59/18
[2017-11-06 04:00] VITALS: BP 59/17
== END 2017-11-06 05:59 | disposition expired | DRG 133 ==
LOC: ER 01:35 → EDBEDREQTM 03:51 → EDBEDREQ 03:51 → ENRESERV 04:01 → 5EST 05:30 → 6EST 11-05 11:05
PROVIDERS: ADMIT Internal Medicine; ATTEND Internal Medicine
PROC: 0W993ZZ Drainage of Right Pleural Cavity, Percutaneous Approach (ICD-10-PCS; principal; 2017-10-21)
PROC: 5A09557 Assistance with Respiratory Ventilation, Greater than 96 Consecutive Hours, Continuous Positive Airway Pressure (ICD-10-PCS; 2017-10-21)
PROC: 02HV33Z Insertion of Infusion Device into Superior Vena Cava, Percutaneous Approach (ICD-10-PCS; 2017-11-04)
PROC: B548ZZA Ultrasonography of Superior Vena Cava, Guidance (ICD-10-PCS; 2017-11-04)
DX: J96.00 Acute respiratory failure, unspecified whether with hypoxia or hypercapnia (principal); E43 Unspecified severe protein-calorie malnutrition; E87.4 Mixed disorder of acid-base balance; J18.1 Lobar pneumonia, unspecified organism; J91.0 Malignant pleural effusion; C25.9 Malignant neoplasm of pancreas, unspecified; L89.310 Pressure ulcer of right buttock, unstageable; C78.7 Secondary malignant neoplasm of liver and intrahepatic bile duct; D68.59 Other primary thrombophilia; Z66 Do not resuscitate; R65.10 Systemic inflammatory response syndrome (SIRS) of non-infectious origin without acute organ dysfunction; D63.8 Anemia in other chronic diseases classified elsewhere; G82.20 Paraplegia, unspecified; J44.9 Chronic obstructive pulmonary disease, unspecified; D63.0 Anemia in neoplastic disease; L90.5 Scar conditions and fibrosis of skin; Z51.5 Encounter for palliative care; R59.0 Localized enlarged lymph nodes; R73.9 Hyperglycemia, unspecified; E78.5 Hyperlipidemia, unspecified; F41.9 Anxiety disorder, unspecified; G89.4 Chronic pain syndrome; I10 Essential (primary) hypertension; Z79.899 Other long term (current) drug therapy; Z80.0 Family history of malignant neoplasm of digestive organs; Z87.891 Personal history of nicotine dependence; Z88.1 Allergy status to other antibiotic agents; Z88.8 Allergy status to other drugs, medicaments and biological substances; Z79.2 Long term (current) use of antibiotics; Z68.1 Body mass index [BMI] 19.9 or less, adult
CPT/HCPCS: 32555; 36415; 36569; 36600; 71045; 71275; 76937; 80048; 80053; 80305; 81003; 82375; 82378; 82805; 82962; 83036; 83605; 83690; 83880; 84484; 85025; 85610; 86301; 87040; 87086; 87106; 93005; 93306; 94640; 97163; 99291; A6261; C1725; J1200; J1650; J2270; J2405; J3490; J7030; J7050; J7620; J7626; Q0163; Q9967